=== PATIENT | female | born 1955 | race Caucasian/White ===

== ENCOUNTER 2019-01-25 11:37 | Inpatient (IN) ==
[2019-01-25] MEDS ORDERED: MOM Conc 10 ML UD.LIQ PO PRN (17:32)
[2019-01-25] MEDS ORDERED: *HR* LORazepam 1 MG TABLET PO PRN (17:32)
[2019-01-25] MEDS ORDERED: Haloperidol Lactate 5 MG/ML VIAL IM PRN (17:32)
[2019-01-25] MEDS ORDERED: hydrOXYzine pamoate 25 MG CAPSULE PO PRN (17:32)
[2019-01-25] MEDS ORDERED: *HR* LORazepam 2 MG/ML VIAL IM PRN (17:32)
[2019-01-25] MEDS ORDERED: traZODone 50 MG TABLET PO PRN (17:32)
[2019-01-25] MEDS ORDERED: Mag Hydrox/Al Hydrox/Simeth 30 ML UDC PO PRN (17:32)
[2019-01-25] MEDS ORDERED: *HR* Dextrose 50 % in Water (Syg) 50 ML SYRINGE IVP PRN (17:51)
[2019-01-25] MEDS ORDERED: D5% in Water 1,000 ML IVC PRN (17:51)
[2019-01-25] MEDS ORDERED: Dextrose Gel 15 GM/37.5 ML TUBE PO PRN ×2 (17:51)
[2019-01-25] MEDS: Insulin LISPRO 300 UNITS/3 ML VIAL SQ SCH (18:48)
[2019-01-25] MEDS: Acetaminophen 325 MG TABLET PO PRN (19:04)
[2019-01-25] MEDS ORDERED: INSULIN DETEMIR 75 UNIT SQ SCH (21:00)
[2019-01-25] MEDS: Divalproex (12 HR) 500 MG TABLET PO SCH (21:43)
[2019-01-25] MEDS: Gabapentin 300 MG CAPSULE PO SCH (21:43)
[2019-01-25] MEDS: traZODone 50 MG TABLET PO SCH (21:44)
[2019-01-25] MEDS: Carbidopa/Levodopa 25/100 TABLET PO SCH (21:45)
[2019-01-25] MEDS: Insulin DETEMIR 100 UNIT/ML X5UNITS SQ SCH (21:48)
--- NOTE | 2019-01-26 08:33 | Psychiatry History & Physical ---
Date of Encounter: 01/26/19 Time of Encounter: 07:00 History of Present Illness Patient Stated Chief Complaint: I tried to kill myself Medicare Admission Attestation: For traditional Medicare patients the provided hospital inpatient services are reasonable and necessary and in the case of services not specified as inpatient-only under 42 CFR 419.22 (n), that they are appropriately provided as inpatient services in accordance 42 CFR 412.3. For Critical Access Hospital the patient may reasonably be expected to be discharged or transferred to a hospital within 96 hours after admission to the Critical Access Hospital. Admitted From: Intrahospital Transfer Plans for Post Hospital Care: Home History of Present Illness: Ms. Harding is a 63 year old female who recent attempted suicide by overdosing on her insulin. Patient admits to extreme loneliness at home and states "no one calls or visits." She has family nearby including 2 brothers and 1 son. She states her relationship with her siblings has been strained since her mother a few years ago and that they do not speak often. She states her son who lives 3 hours away "never visits" but does text her daily. She admits to having a counselor who comes to her house once a week to see her but states they didn't have an appointment last week. She reports that Wednesday she just decided "it wasn't worth it anymore" and began taking too much of her insulin "to end it all." She denies any past suicide attempts but admits to previous inpatient psychiatric admissions for "breakdowns." On interview today patient denies any SI/HI or intent to harm herself. She does complain of difficulty sleeping and "real bad anxiety." She was well aware of her psychiatric medications and stated they work well for her except for the buspar which "doesn't do anything." She has been diagnosed with Parkinsons disease and admits to two previous CVA's with most recent one being 2 years prior. She denies AH. She does not show evidence of current delusions, tino, or hypomania. She is initially resistant to discussing inpatient psychiatric hospitilization but does admit she is lonely and that being taken care of in the hospital "might help." We discussed increasing her paroxetine for her undertreated anxiety which she is agreeable too and starting Melatonin to help with sleep. Patient does admit to visual hallucinations in the form of "I see my mother sitting with me when I watch [employer] games." She admits that her mother and her used to watch baseball together before her mother and now when she watches the games sometimes she sees her mother with her. She denies her mother saying anything too her in those times and denies these moments being concerning or distressing to her. Due to lack of distress and mothers being such a large moment in patients life, these hallucinations may be part of normal grieving for her and do not need to be treated at this time with an antipsychotic. Past Med Surg Social Fam HX - Past Medical History Medical history: arthritis, CVA, diabetes, GERD, glaucoma, kidney stones, renal disease, other - Past Psychiatric History Psychiatric history: Reports: anxiety, bipolar, previous psychiatric hospitalization. Denies: prior suicide attempt Past psychiatric history details: Patient admits to two previous psychiatric hospitilizations for "mental breakdowns." She states she has been diagnosed with Depression, Bipolar Disorder, and Schizophrenia. She admits to previous episodes of staying up 2-3 days without sleeping and without feeling the need for sleep and admits that during those times she was more impulsive especially with her spending habits. She denies any previous suicide attempts. Family psychiatric history: Yes Family History of Suicide: Unknown - Past Surgical History Surgical History: , cholecystectomy, hysterectomy, knee replacement, orthopedic, other, other - Social History Smoking Status: Never smoker Smokeless Tobacco Status: No Alcohol use: none Drug use: none - Review of Systems Psychiatric: Reports: depression, anxiety, abnormal sleep pattern, hopelessness. Denies: suicidal ideation, homicidal ideation, auditory hallucinations, visual hallucinations, panic attacks Results - Labs Labs: Laboratory Last Values WBC 12.3 K/mcL (4.3-11.1) H 01/24/19 01:41 RBC 3.54 M/mcL (3.82-4.97) L 01/24/19 01:41 Hgb 10.4 g/dL (11.5-15.4) L 01/24/19 01:41 Hct 32.3 % (35.3-44.9) L 01/24/19 01:41 MCV 91.2 fL (83.0-100.0) 01/24/19 01:41 MCH 29.4 pg (28.0-33.3) 01/24/19 01:41 MCHC 32.2 g/dL (31.6-35.5) 01/24/19 01:41 RDW 13.2 % (11.5-14.5) 01/24/19 01:41 Plt Count 258 K/mcL (140-400) 01/24/19 01:41 MPV 9.7 fL (9.4-12.4) 01/24/19 01:41 Immature Gran % 1.1 % (0-4) 01/24/19 01:41 Seg Neutrophils % 58.4 % 01/24/19 01:41 27.9 % 01/24/19 01:41 8.6 % 01/24/19 01:41 3.6 % 01/24/19 01:41 0.4 % 01/24/19 01:41 7.2 K/mcL (1.6-8.9) 01/24/19 01:41 3.4 K/mcL (0.6-4.6) 01/24/19 01:41 1.1 K/mcL (0.0-1.3) 01/24/19 01:41 0.4 K/mcL (0.0-0.6) 01/24/19 01:41 0.1 K/mcL (0.0-0.2) 01/24/19 01:41 Sodium 134 mEq/L (136-145) L 01/24/19 01:41 Potassium 4.5 mEq/L (3.5-5.1) 01/24/19 01:41 Chloride 99 mEq/L (98-107) 01/24/19 01:41 Carbon Dioxide 26 mEq/L (23-29) 01/24/19 01:41 BUN 22 mg/dL (8-23) 01/24/19 01:41 1.17 mg/dL (0.60-1.20) 01/24/19 01:41 Est GFR ( Amer) 57 (> 60) L 01/24/19 01:41 Est GFR (Non-Af Amer) 47 (> 60) L 01/24/19 01:41 19 (6-26) 01/24/19 01:41 Glucose 165 mg/dL (70-105) H 01/24/19 01:41 285 (280-300) 01/24/19 01:41 Calcium 8.6 mg/dL (8.6-10.3) 01/24/19 01:41 0.3 mg/dL (0.3-1.0) 01/24/19 01:41 AST 7 Units/L (13-39) L 01/24/19 01:41 ALT 7 Units/L (7-52) 01/24/19 01:41 64 Units/L (34-104) 01/24/19 01:41 6.2 g/dL (6.4-8.9) L 01/24/19 01:41 3.6 g/dL (3.5-5.7) 01/24/19 01:41 2.6 g/dL (2.4-3.5) 01/24/19 01:41 1.4 (1.1-2.2) 01/24/19 01:41 Past Med Surg Social Fam HX - Past Medical History Medical history: arthritis, CVA, diabetes, GERD, glaucoma, kidney stones, renal disease, TIA, other - Past Surgical History Surgical History: , cholecystectomy, hysterectomy, knee replacement, orthopedic, other, other - Social History Smoking Status: Never smoker Smokeless Tobacco Status: No Alcohol use: none Drug use: marijuana - Family History Son Adopted: No Family Member Ethnicity: Non- Living Status: Still Living Hx Family Cardiac Disorders: No Hx Family Respiratory Disorders: No Hx Family Cancer: No Hx Family GI Disorders: No Hx Family Endocrine Disorder: No Hx Family Neuromuscular Disorders: No Hx Family Neurologic Disorders: No Hx Family HEENT Disorders: No Hx Family Autoimmune Disorders: No Mother Adopted: No Family Member Ethnicity: Non- Living Status: Hx Family Cardiac Disorders: Yes Hx Family Respiratory Disorders: Yes Hx Family Cancer: No Hx Family GI Disorders: No Hx Family Endocrine Disorder: Yes Hx Family Neuromuscular Disorders: No Hx Family Neurologic Disorders: No Hx Family HEENT Disorders: No Hx Family Autoimmune Disorders: No Hx Family Reproductive Disorders: No Hx Family Psychosocial Disorders: No Hx Family Medical Disorders: No Medications & Allergies Atorvastatin Calcium [Lipitor] 20 mg PO DAILY 09/06/17 [History] Carbidopa/Levodopa [Carbidopa-Levodopa 25-100 Tab] 1 tab PO TID 09/06/17 [History] Cholecalciferol (Vitamin D3) [Vitamin D3] 2,000 unit PO DAILY 09/06/17 [History] Gabapentin [Neurontin] 600 mg PO HS 09/06/17 [History] Insulin ASPART [Novolog Flexpen] 15 - 21 unit SQ TID 09/06/17 [History] traZODone [TraZODone] 100 mg PO HS 09/06/17 [History] Amantadine [Symmetrel] 100 mg PO BID 10/07/17 [History] Buspirone HCl [Buspar] 15 mg PO QID 02/07/18 [History] Docusate [Colace] 200 mg PO QAM 02/07/18 [History] Cetirizine HCl [Zyrtec] 10 mg PO DAILY #14 tablet 04/25/18 [Rx] Insulin DETEMIR [Levemir Flextouch] 75 unit SQ BID 05/25/18 [History] Liraglutide [Victoza 2-Rosales] 1.2 mg SQ DAILY 12/09/18 [History] Aspirin 81 mg PO DAILY 01/24/19 [History] Divalproex Sodium 1,000 mg PO HS 01/24/19 [History] Gabapentin [Neurontin] 300 mg PO BID 01/24/19 [History] Lisinopril 2.5 mg PO DAILY 01/24/19 [History] Oxybutynin [Ditropan] 5 mg PO BID 01/24/19 [History] Paroxetine [Paxil] 60 mg PO DAILY tablet 01/25/19 [Rx] Allergy/AdvReac Type Severity Reaction Status Date / Time levofloxacin [From Levaquin] Allergy Hives Verified 12/09/18 14:26 Penicillins Allergy Hives Verified 04/25/18 14:21 sulfamethoxazole Allergy Hives Verified 04/25/18 14:21 [From Sulfamethoprim] Tetanus Vaccines and Toxoid Allergy Rash Verified 04/25/18 14:21 [Tetanus Vaccines & Toxoid] trimethoprim Allergy Hives Verified 04/25/18 14:21 [From Sulfamethoprim] clindamycin AdvReac Hives Verified 04/25/18 14:21 ibuprofen AdvReac See Verified 04/25/18 14:21 Comments Review of Systems Constitutional: Denies: fever Eyes: Denies: eye pain Ears, Nose, Throat: Denies: ear pain Cardiovascular: Denies: chest pain Respiratory: Denies: cough Gastrointestinal: Denies: abdominal pain Genitourinary female: Denies: urgency Musculoskeletal: Denies: back pain Integumentary: Denies: rash Neurological: Denies: headache Psychiatric: Reports: depression, abnormal sleep pattern, suicidal ideation, change in appetite, auditory hallucinations Endocrine: Reports: fatigue Hematologic/Lymphatic: Denies: easy bleeding Allergic/Immunologic: Denies: facial swelling Exam - HEENT Head exam IM: Present: atraumatic Eye exam IM: Present: EOMI ENT exam IM: Present: mucous membranes moist - Neurological Neurological exam: Present: CN II-XII intact - Respiratory Respiratory exam IM: Absent: respiratory distress - GI/Abdominal GI/Abdominal exam IM: Present: no peritoneal signs - Extremities Extremities exam IM: Present: full ROM - Skin Skin exam IM: Absent: abrasion - Constitutional Vitals: Temp Pulse Resp BP Pulse Ox 98.9 F 98 18 102/68 97 01/25/19 21:00 01/25/19 21:00 01/25/19 21:00 01/25/19 21:00 01/25/19 21:00 General appearance: age & developmentally appropriate - Musculoskeletal Gait: slow Station: stooped Strength & Tone: normal for patient - Psychiatric Patient Orientation: Yes Person, Yes Time, Yes Place, Yes Circumstance Level of alertness: Alert Behavior: tearful Psychomotor activity: Slowed Eye Contact: Minimal Contact Mood Description: Depressed Patient description of mood: depressed Affect description: dysphoric Speech Volume: Soft/Quiet Speech pattern: slowed Language & Vocabulary: consistent with education, limited Thought Process: Linear Thought Content: Yes Suicidal ideation Perceptual Disturbances: Yes Auditory hallucinations Attention Span Ability: Capable of Focused Attention Memory Description: Grossly Intact Patient Reliability: Reliable Historian Fund of knowledge: Yes abstraction ability Intelligence Estimate: Average Judgment: Fair Insight: Partial Results - Labs Labs: Laboratory Last Values POC Glucose 181 mg/dL (70-99) H 01/25/19 20:59 Assessment and Plan (1) Bipolar 2 disorder, major depressive episode Current visit: No Status: Suspected Plan: Admit inpatient for safety and stabilization Additional Plan: continue current medications, encourage group attendance, therapist to work on discharge planning. Risks, benefits, side effects, alternatives discussed w/pt: Yes Patient agreeable to treatment: Yes Plans for Post Hospital Care: Home Estimated Length of Stay (Days): 4
[2019-01-26] MEDS: Insulin LISPRO 300 UNITS/3 ML VIAL SQ SCH ×3 (09:01→16:59)
[2019-01-26] MEDS: Cholecalciferol (D-3) 1,000 UNIT (25MCG) TABLET PO SCH (09:02)
[2019-01-26] MEDS: Aspirin 81 MG TAB.CHEW PO SCH (09:02)
[2019-01-26] MEDS: Loratadine 10 MG TABLET PO SCH (09:02)
[2019-01-26] MEDS: Carbidopa/Levodopa 25/100 TABLET PO SCH ×3 (09:02→20:44)
[2019-01-26] MEDS: Gabapentin 300 MG CAPSULE PO SCH ×3 (09:02→20:46)
[2019-01-26] MEDS: Liraglutide 1.2 MG SQ SCH (09:50)
[2019-01-26] MEDS: Insulin DETEMIR 100 UNIT/ML X5UNITS SQ SCH ×2 (11:22→22:07)
[2019-01-26] MEDS: Acetaminophen 325 MG TABLET PO PRN ×2 (14:27→20:48)
[2019-01-26] MEDS: traZODone 50 MG TABLET PO SCH (20:45)
[2019-01-26] MEDS: Divalproex (12 HR) 500 MG TABLET PO SCH (20:47)
[2019-01-27] MEDS: Acetaminophen 325 MG TABLET PO PRN ×3 (04:04→20:10)
[2019-01-27] MEDS: Carbidopa/Levodopa 25/100 TABLET PO SCH ×3 (08:41→20:10)
[2019-01-27] MEDS: Cholecalciferol (D-3) 1,000 UNIT (25MCG) TABLET PO SCH (08:42)
[2019-01-27] MEDS: Aspirin 81 MG TAB.CHEW PO SCH (08:42)
[2019-01-27] MEDS: Gabapentin 300 MG CAPSULE PO SCH ×3 (08:42→20:12)
[2019-01-27] MEDS: Loratadine 10 MG TABLET PO SCH (08:43)
[2019-01-27] MEDS: Insulin DETEMIR 100 UNIT/ML X5UNITS SQ SCH ×2 (08:45→20:14)
[2019-01-27] MEDS: Insulin LISPRO 300 UNITS/3 ML VIAL SQ SCH ×3 (08:57→16:41)
[2019-01-27] MEDS: Liraglutide 1.2 MG SQ SCH (08:57)
[2019-01-27] MEDS ORDERED: Azithromycin 250 MG TABLET PO ONE (09:43)
--- NOTE | 2019-01-27 09:47 | Psychiatry Progress Note ---
Date of Encounter: 01/27/19 Time of Encounter: 09:00 Subjective Interval history: Patient continues to report feeling very depressed. She feels all her family have abandoned her and there is no point in living. She has suicidal ideations with plan to overdose. She refused some vital signs and one-on-one with staff yesterday because of feeling so hopeless and overwhelmed. She says she will talk to her 1 son about the stress he has caused because she does not want the rest of the family knowing her business. He continues to have symptoms of a sinus infection. She now says she can take azithromycin. She also reports she has had off and on chest pain but none in the last 48 hours. Review of Systems Cardiovascular: Reports: chest pain Neurological: Reports: headache Psychiatric: Reports: depression, abnormal sleep pattern, suicidal ideation, change in appetite, auditory hallucinations Results - Vital Signs Vital Signs: Temp Pulse Resp BP Pulse Ox 97.9 F 110 22 115/82 98 01/27/19 08:50 01/27/19 08:50 01/27/19 08:50 01/27/19 08:50 01/27/19 08:50 - Labs Labs: Laboratory Results - last 24 hr 01/26/19 01/26/19 01/26/19 11:43 16:51 20:05 POC Glucose 149 H 100 H 85 01/27/19 07:47 POC Glucose 68 L Assessment and Plan (1) Bipolar 2 disorder, major depressive episode Current visit: No Status: Suspected Plan: Continue hospitalization, Close observation, Suicide Precautions per unit protocol, Encourage participation in unit milieu, Group Therapy, Monitor sleep, Monitor appetite Additional Plan: Add Wellbutrin XL 150 by mouth every morning for further treatment of depression. WIll update the medicine consult regarding her off and non-chest pain. We will start the azithromycin 500 mg 1 and then 250 daily for 4 days. Risks, benefits, side effects, alternatives discussed w/pt: Yes Patient agreeable to treatment: Yes Consult Discharge Plan - Plan Referrals: [facility] [[facility]] - 02/08/19 12:00 pm (You have an appointment scheduled with Kavya Saab on Friday, February 08, 2019 at 12:00 PM for Counseling and Case Management. You have an appointment scheduled for January at 11:20 AM with Kathy Ramirez CNP for medication management. Please contact the office at least 24 hours in advance if you are unable to keep your appointment(s). ) Psychiatry Exam - Constitutional Vitals: Temp Pulse Resp BP Pulse Ox 97.9 F 110 22 115/82 98 01/27/19 08:50 01/27/19 08:50 01/27/19 08:50 01/27/19 08:50 01/27/19 08:50 General appearance: age & developmentally appropriate, obese - Musculoskeletal Gait: slow, shuffling Station: stooped Strength & Tone: mild weakness - Psychiatric Patient Orientation: Yes Person, Yes Time, Yes Place, Yes Circumstance Level of alertness: Alert Behavior: tearful Psychomotor activity: Slowed Eye Contact: Minimal Contact Mood Description: Depressed Patient description of mood: sad Affect description: dysphoric Speech Volume: Soft/Quiet Speech pattern: slowed Language & Vocabulary: consistent with education Thought Process: Logical Thought Content: Yes Suicidal ideation, No Homicidal ideation Perceptual Disturbances: No Auditory hallucinations, No Visual hallucinations Attention Span Ability: Capable of Focused Attention Memory Description: Grossly Intact Patient Reliability: Reliable Historian Fund of knowledge: Yes abstraction ability, Yes aware of current events Intelligence Estimate: Average Judgment: Limited Insight: Minimal
[2019-01-27] MEDS: BuPROPion XL (24 HR) 150 MG TABLET PO SCH (10:59)
--- NOTE | 2019-01-27 13:41 | Internal Medicine Consult Note ---
Date of Encounter: 01/27/19 Time of Encounter: 13:33 - Assessment and Plan (1) Chest pressure Current Visit: Yes Status: Acute Assessment and plan: 63-year-old female with history of diabetes mellitus, hypertension, bipolar disorder, and suicide attempts who complains of intermittent chest pressure for couple weeks. Recent lab work showed negative troponin, EKG performed 3 days ago showed in no acute ST-T change. Patient reported that her chest pain/pressure has been stable and has not been worsened in the last 3 days. We will order troponin and cycle for 3 days set, will also order a EKG for now. Workup will also include with that repeat A1c, lipid panel, an echocardiogram, and a stress test. We will consult cardiology if indicated. (2) Insulin overdose Current Visit: No Status: Acute Assessment and plan: Resolved, patient blood glucose was controlled although not perfectly controlled. Continue current insulin regimen and treatment plan. Qualifiers: Encounter type: initial encounter Injury intent: intentional self-harm Qualified Code(s): T38.3X2A - Poisoning by insulin and oral hypoglycemic [antidiabetic] drugs, intentional self-harm, initial encounter (3) Hypoglycemia Current Visit: No Status: Resolved (4) Suicide attempt Current Visit: No Status: Acute Assessment and plan: Treatment by psychiatry team. (5) Bipolar 2 disorder, major depressive episode Current Visit: No Status: Suspected Assessment and plan: Treatment per psychiatry team. (6) DVT prophylaxis Current Visit: No Status: Acute Assessment and plan: Heparin subcutaneous. - Time Spent With Patient Total time spent is greater than 50% in coordination of care (as documented) at patient's floor/unit and/or counseling patient: Greater than 35 minutes Internal Medicine - CN: HPI - Data of Consult Patient: known to practice within the last 3 years Consult date: 01/27/19 Requesting Physician: Dilcia Martin - Consult Narrative Reason for consult: chest pressure History of present illness: Ms. Harding is a 63 year old female with past medical history of diabetes mellitus, hypertension, bipolar disorder, and a suicidal attempts who was recently admitted for suicidal activity by overdosing insulin. She is currently treated at the psychiatry unit for suicidal attempt. Patient reported that she has been having intermittent left-sided chest pressure in the past couple weeks, chest pain reappeared today without any obvious precipitant. Hospitalist was consulted. Patient reported extensive family history of CAD, but she never been diagnosis with CAD, she has diabetes and hypertension for years and currently on insulin and lisinopril, her blood glucose was poorly controlled. The pain was characterized by patient as intermittent, 3-4 out of 10, with no obvious aggravating or abbreviating factors, lasts about 10-25 minutes, usually resolved by itself without intervention, without palpitation, lightheadedness, or syncope. She was admitted to our service 3 days ago because of insulin overdose and hypoglycemia. At that time, troponin was negative, as was her EKG. She never had any cardiac workup and she wishes to have 1. She denies fever, chills, or night sweats. Past Med Surg Social Fam HX - Past Medical History Medical history: arthritis, CVA, diabetes, GERD, glaucoma, kidney stones, renal disease, TIA, other Additional medical history: Parkinson's Disease, Type 11 Diabetic Psychiatric history: anxiety, bipolar, previous psychiatric hospitalization - Past Surgical History Surgical History: , cholecystectomy, hysterectomy, knee replacement, orthopedic, other, other Additional surgical history: left hand surgery. left total knee. right hand - Social History Smoking Status: Never smoker Smokeless Tobacco Status: No Alcohol use: none Drug use: marijuana - Family History Son Adopted: No Family Member Ethnicity: Non- Living Status: Still Living Hx Family Cardiac Disorders: No Hx Family Respiratory Disorders: No Hx Family Cancer: No Hx Family GI Disorders: No Hx Family Endocrine Disorder: No Hx Family Neuromuscular Disorders: No Hx Family Neurologic Disorders: No Hx Family HEENT Disorders: No Hx Family Autoimmune Disorders: No Mother Adopted: No Family Member Ethnicity: Non- Living Status: Hx Family Cardiac Disorders: Yes Hx Family Respiratory Disorders: Yes Hx Family Cancer: No Hx Family GI Disorders: No Hx Family Endocrine Disorder: Yes Hx Family Neuromuscular Disorders: No Hx Family Neurologic Disorders: No Hx Family HEENT Disorders: No Hx Family Autoimmune Disorders: No Hx Family Reproductive Disorders: No Hx Family Psychosocial Disorders: No Hx Family Medical Disorders: No Review of systems: REVIEW OF SYSTEMS: CONSTITUTIONAL: No weight loss, fever, chills, weakness or fatigue. HEENT: Eyes: No visual loss, blurred vision, double vision or yellow sclerae. Ears, Nose, Throat: No hearing loss, sneezing, congestion, runny nose or sore throat. SKIN: No rash or itching. CARDIOVASCULAR: see HPI. RESPIRATORY: No shortness of breath, cough or sputum. GASTROINTESTINAL: No anorexia, nausea, vomiting or diarrhea. No abdominal pain or blood. GENITOURINARY: No dysuria, urgency, or frequency. NEUROLOGICAL: No headache, dizziness, syncope, paralysis, ataxia, numbness or tingling in the extremities. No change in bowel or bladder control. MUSCULOSKELETAL: No muscle, back pain, joint pain or stiffness. HEMATOLOGIC: No anemia, bleeding or bruising. LYMPHATICS: No enlarged nodes. No history of splenectomy. PSYCHIATRIC: No history of depression or anxiety. ENDOCRINOLOGIC: No reports of sweating, cold or heat intolerance. No polyuria or polydipsia. Internal Medicine - CN: Meds Atorvastatin Calcium [Lipitor] 20 mg PO DAILY 09/06/17 [History] Carbidopa/Levodopa [Carbidopa-Levodopa 25-100 Tab] 1 tab PO TID 09/06/17 [H istory] Cholecalciferol (Vitamin D3) [Vitamin D3] 2,000 unit PO DAILY 09/06/17 [History] Gabapentin [Neurontin] 600 mg PO HS 09/06/17 [History] Insulin ASPART [Novolog Flexpen] 15 - 21 unit SQ TID 09/06/17 [History] traZODone [TraZODone] 100 mg PO HS 09/06/17 [History] Amantadine [Symmetrel] 100 mg PO BID 10/07/17 [History] Buspirone HCl [Buspar] 15 mg PO QID 02/07/18 [History] Docusate [Colace] 200 mg PO QAM 02/07/18 [History] Cetirizine HCl [Zyrtec] 10 mg PO DAILY #14 tablet 04/25/18 [Rx] Insulin DETEMIR [Levemir Flextouch] 75 unit SQ BID 05/25/18 [History] Liraglutide [Victoza 2-Rosales] 1.2 mg SQ DAILY 12/09/18 [History] Aspirin 81 mg PO DAILY 01/24/19 [History] Divalproex Sodium 1,000 mg PO HS 01/24/19 [History] Gabapentin [Neurontin] 300 mg PO BID 01/24/19 [History] Lisinopril 2.5 mg PO DAILY 01/24/19 [History] Oxybutynin [Ditropan] 5 mg PO BID 01/24/19 [History] Paroxetine [Paxil] 60 mg PO DAILY tablet 01/25/19 [Rx] Allergy/AdvReac Type Severity Reaction Status Date / Time levofloxacin [From Levaquin] Allergy Hives Verified 12/09/18 14:26 Penicillins Allergy Hives Verified 04/25/18 14:21 sulfamethoxazole Allergy Hives Verified 04/25/18 14:21 [From Sulfamethoprim] Tetanus Vaccines and Toxoid Allergy Rash Verified 04/25/18 14:21 [Tetanus Vaccines & Toxoid] trimethoprim Allergy Hives Verified 04/25/18 14:21 [From Sulfamethoprim] clindamycin AdvReac Hives Verified 04/25/18 14:21 ibuprofen AdvReac See Verified 04/25/18 14:21 Comments Hospitalist - CN: Exam - Constitutional Vitals: Temp Pulse Resp BP Pulse Ox 97.9 F 110 22 115/82 98 01/27/19 08:50 01/27/19 08:50 01/27/19 08:50 01/27/19 08:50 01/27/19 08:50 General appearance IM: Present: A&O X 3 Exam: PHYSICAL EXAMINATION: GENERAL APPEARANCE: The patient is alert, oriented and in no acute distress. HEENT: Head is normocephalic. The sinuses are nontender. Pupils are equal and reactive. The nares are patent. Oropharynx clear without lesions. NECK: Supple without lymphadenopathy. HEART: Regular rate and rhythm. LUNGS: No crackles or wheezes are heard. ABDOMEN: Soft, nontender, nondistended with good bowel sounds heard. Inguinal area is normal. EXTREMITIES: Without cyanosis, clubbing or edema. NEUROLOGICAL: Gross nonfocal. SKIN: Warm and dry without any rash. Consult Discharge Plan - Plan Referrals: [facility] [Outside] - 02/08/19 12:00 pm (You have an appointment scheduled with Kavya Saab on Friday, February 08, 2019 at 12:00 PM for Counseling and Case Management. You have an appointment scheduled for January at 11:20 AM with Kathy Ramirez CNP for medication management. Please contact the office at least 24 hours in advance if you are unable to keep your appointment(s). )
[2019-01-27] MEDS ORDERED: Nitroglycerin 0.4 MG TAB.SUBL SL PRN (14:05)
[2019-01-27] MEDS: traZODone 50 MG TABLET PO SCH (20:10)
[2019-01-27] MEDS: Divalproex (12 HR) 500 MG TABLET PO SCH (20:12)
[2019-01-27] MEDS ORDERED: Perflutren Lipid Microsphere 1.3 ML in 0.9 % Sodium Chloride 8.7 ML IVP ONE (21:13)
[2019-01-28] MEDS ORDERED: Regadenoson 0.4 MG/5 ML SYRINGE IVP ONE (06:06)
[2019-01-28] MEDS: Insulin LISPRO 300 UNITS/3 ML VIAL SQ SCH ×3 (08:28→16:50)
[2019-01-28] MEDS: Gabapentin 300 MG CAPSULE PO SCH ×3 (08:34→21:29)
[2019-01-28] MEDS: Aspirin 81 MG TAB.CHEW PO SCH (08:34)
[2019-01-28] MEDS: Azithromycin 250 MG TABLET PO SCH (08:34)
[2019-01-28] MEDS: Cholecalciferol (D-3) 1,000 UNIT (25MCG) TABLET PO SCH (08:35)
[2019-01-28] MEDS: BuPROPion XL (24 HR) 150 MG TABLET PO SCH (08:35)
[2019-01-28] MEDS: Carbidopa/Levodopa 25/100 TABLET PO SCH ×3 (08:35→21:29)
[2019-01-28] MEDS: Loratadine 10 MG TABLET PO SCH (08:35)
[2019-01-28 08:53] LABS: Chol/HDL Ratio 1.9 (0-4.9)
[2019-01-28] MEDS: Insulin DETEMIR 100 UNIT/ML X5UNITS SQ SCH ×2 (08:53→21:32)
[2019-01-28] MEDS: Liraglutide 1.2 MG SQ SCH (10:00)
--- NOTE | 2019-01-28 10:43 | Internal Med Progress Note ---
Hospitalist Progress Note - Encounter Date of Encounter: 01/28/19 Time of Encounter: 08:05 - Subjective Interval History: Jojo Harding is a 63 YOF with history of DM, HTN, CVA 2, Parkinson's, and bipolar who was admitted to due to attempted suicide by overdosing on insulin. Hospitalist consulted due to complaint of intermittent chest pressure for the past couple weeks. No acute events overnight. Patient without complaint and not currently expe riencing chest pressure. - Exam Vitals: Temp Pulse Resp BP Pulse Ox 98.3 F 85 16 77/62 99 01/28/19 09:00 01/28/19 09:00 01/28/19 09:00 01/28/19 09:00 01/28/19 09:00 Exam: GENERAL: alert, oriented and in no acute distress. Speaking full sentences without difficulty. HEAD: Normocephalic, atraumatic ENT: Oropharynx clear, mucosa moist HEART: RRR, no murmur noted LUNGS: CTAB, no wheezing or crackles EXTREMITIES: 1+ pitting edema below the knees bilaterally. NEUROLOGICAL: No focal deficits SKIN: Warm, dry, intact. No rashes or lesions noted. PSYCH: Mood and affect appropriate - Assessment and Plan (1) Chest pressure Current Visit: Yes Status: Acute Assessment and Plan: Unclear etiology, suspect stress related, will rule out ACS given multiple risk factors Recent EKG without acute ischemic changes Troponin negative 2 Nuclear stress test pending (2) Insulin overdose Current Visit: Yes Status: Resolved Assessment and Plan: Suicide attempt via insulin Hypoglycemia resolved Treatment per primary team (3) Acute sinus infection Current Visit: Yes Status: Acute Assessment and Plan: Continue azithromycin per primary team DVT Prophylaxis: Subcutaneous heparin - Time Spent with Patient Total time spent is greater than 50% in coordination of care (as documented) at patient's floor/unit and/or counseling patient: Plan of Care Discussed with: patient Internal Medicine: Result - Labs Labs: Cardiac Enzymes 01/27/19 01/28/19 Range/Units 17:26 05:48 Troponin I < 0.03 < 0.03 (< 0.04) ng/mL - Impressions Impressions Echocardiogram 01/27/19 13:47 Impressions: LVEF 65-70%. Mild left ventricular diastolic dysfunction. Normal right ventricular structure and function. Mildly dilated left atrium. No significant valvular dysfunction. No pulmonary hypertension. Left Ventricular Wall Motion: Rest Echo Findings All wall segments showed normal motion. Findings: Study Quality * Technically adequate exam. ECG Findings * Normal sinus rhythm. Left Ventricle * LVEF 65-70%. * Normal LV chamber size, wall thickness and systolic function. * Mild left ventricular diastolic dysfunction. Right Ventricle * Normal right ventricular structure and function. Left Atrium * Mildly dilated left atrium. Right Atrium * Normal right atrial size. Interatrial Septum * Interatrial septum not well evaluated. * No evidence of PFO by color Doppler. Aortic Valve * Aortic valve not well visualized. * No aortic stenosis. * No aortic regurgitation. Mitral Valve * Normal mitral valve structure. * No mitral stenosis. * Trace mitral regurgitation. Tricuspid Valve * Normal tricuspid valve structure. * No tricuspid stenosis. * Trace tricuspid regurgitation. * Estimated RA pressure is 3 mmHg. * Estimated RVSP is 30 mmHg. * No pulmonary hypertension. Pulmonic Valve * Pulmonic valve is not well visualized. * No pulmonic stenosis. * No pulmonic regurgitation. Aorta * Normally sized aortic root. Pericardium * The pericardium appears normal. IVC * The IVC is not dilated. * > 50% respiratory change - VTE Reasons for not Prescribing Prophylaxis: Treatment not Indicated - Low risk for VTE Consult Discharge Plan - Plan Referrals: [facility] [Outside] - 02/08/19 12:00 pm (You have an appointment scheduled with Kavya Saab on Friday, February 08, 2019 at 12:00 PM for Counseling and Case Management. You have an appointment scheduled for January at 11:20 AM with Kathy Ramirez CNP for medication management. Please contact the office at least 24 hours in advance if you are unable to keep your appointment(s). ) (2) Insulin overdose Qualifiers: Encounter type: initial encounter Injury intent: intentional self-harm Qualified Code(s): T38.3X2A - Poisoning by insulin and oral hypoglycemic [antidiabetic] drugs, intentional self-harm, initial encounter (3) Acute sinus infection Qualifiers: Sinusitis location: unspecified location Recurrence: not specified as recurrent Qualified Code(s): J01.90 - Acute sinusitis, unspecified
[2019-01-28 11:10] LABS: Estimated Average Glucose 157 mg/dl
--- NOTE | 2019-01-28 12:26 | Psychiatry Progress Note ---
Date of Encounter: 01/28/19 Time of Encounter: 12:24 Subjective Interval history: patient has been seen byhospitalist. They tried to do an echo but couldn't get IV access so will wait until Wednesday. She continues to feel very depressed and hopeless. She feels no onw in her family cares about her. SHe is tolerating the wellbutrin but hasn't noticed a difference. Sinus infection a bit better with azythromycin. Review of Systems Neurological: Reports: headache Psychiatric: Reports: depression, abnormal sleep pattern, suicidal ideation, change in appetite, auditory hallucinations Results - Vital Signs Vital Signs: Temp Pulse Resp BP Pulse Ox 98.3 F 85 16 77/62 99 01/28/19 09:00 01/28/19 09:00 01/28/19 09:00 01/28/19 09:00 01/28/19 09:00 - Labs Labs: Laboratory Results - last 24 hr 01/27/19 01/27/19 01/27/19 16:35 17:26 20:09 POC Glucose 160 H 141 H Est Mean Plasma Glucose Hemoglobin A1c Troponin I < 0.03 Triglycerides Cholesterol LDL Cholesterol, Calc VLDL Cholesterol, Calc HDL Cholesterol Cholesterol/HDL Ratio 01/28/19 01/28/19 01/28/19 04:00 04:00 05:48 POC Glucose Est Mean Plasma Glucose 157 Hemoglobin A1c 7.1 H Troponin I < 0.03 Triglycerides 89 Cholesterol 132 LDL Cholesterol, Calc 46 VLDL Cholesterol, Calc 18 HDL Cholesterol 68 H Cholesterol/HDL Ratio 1.9 01/28/19 01/28/19 08:15 11:46 POC Glucose 82 153 H Est Mean Plasma Glucose Hemoglobin A1c Troponin I Triglycerides Cholesterol LDL Cholesterol, Calc VLDL Cholesterol, Calc HDL Cholesterol Cholesterol/HDL Ratio - Impressions ITS Impressions Echocardiogram 01/27/19 13:47 Impressions: LVEF 65-70%. Mild left ventricular diastolic dysfunction. Normal right ventricular structure and function. Mildly dilated left atrium. No significant valvular dysfunction. No pulmonary hypertension. Left Ventricular Wall Motion: Rest Echo Findings All wall segments showed normal motion. Findings: Study Quality * Technically adequate exam. ECG Findings * Normal sinus rhythm. Left Ventricle * LVEF 65-70%. * Normal LV chamber size, wall thickness and systolic function. * Mild left ventricular diastolic dysfunction. Right Ventricle * Normal right ventricular structure and function. Left Atrium * Mildly dilated left atrium. Right Atrium * Normal right atrial size. Interatrial Septum * Interatrial septum not well evaluated. * No evidence of PFO by color Doppler. Aortic Valve * Aortic valve not well visualized. * No aortic stenosis. * No aortic regurgitation. Mitral Valve * Normal mitral valve structure. * No mitral stenosis. * Trace mitral regurgitation. Tricuspid Valve * Normal tricuspid valve structure. * No tricuspid stenosis. * Trace tricuspid regurgitation. * Estimated RA pressure is 3 mmHg. * Estimated RVSP is 30 mmHg. * No pulmonary hypertension. Pulmonic Valve * Pulmonic valve is not well visualized. * No pulmonic stenosis. * No pulmonic regurgitation. Aorta * Normally sized aortic root. Pericardium * The pericardium appears normal. IVC * The IVC is not dilated. * > 50% respiratory change Assessment and Plan (1) Bipolar 2 disorder, major depressive episode Current visit: No Status: Suspected Plan: Continue hospitalization, Close observation, Suicide Precautions per unit protocol, Encourage participation in unit milieu, Group Therapy, Monitor sleep, Monitor appetite Additional Plan: continue current medication , encourage groups, therapist working on discharge plans. Risks, benefits, side effects, alternatives discussed w/pt: Yes Patient agreeable to treatment: Yes Consult Discharge Plan - Plan Referrals: [facility] [Outside] - 02/08/19 12:00 pm (You have an appointment scheduled with Kavya Saab on Friday, February 08, 2019 at 12:00 PM for Counseling and Case Management. You have an appointment scheduled for January at 11:20 AM with Kathy Ramirez CNP for medication management. Please contact the office at least 24 hours in advance if you are unable to keep your appointment(s). ) Psychiatry Exam - Constitutional Vitals: Temp Pulse Resp BP Pulse Ox 98.3 F 85 16 77/62 99 01/28/19 09:00 01/28/19 09:00 01/28/19 09:00 01/28/19 09:00 01/28/19 09:00 General appearance: age & developmentally appropriate, obese - Musculoskeletal Gait: slow, unsteady, shuffling Station: shaky Strength & Tone: mild weakness - Psychiatric Patient Orientation: Yes Person, Yes Time, Yes Place, Yes Circumstance Level of alertness: Alert Behavior: dramatic Psychomotor activity: Slowed Eye Contact: Minimal Contact Mood Description: Depressed Patient description of mood: sad Affect description: dysphoric Speech Volume: Soft/Quiet Speech pattern: slowed Language & Vocabulary: consistent with education Thought Process: Intact Thought Content: Yes Suicidal ideation, No Homicidal ideation Perceptual Disturbances: Yes Auditory hallucinations Attention Span Ability: Capable of Focused Attention Memory Description: Grossly Intact Patient Reliability: Reliable Historian Fund of knowledge: Yes abstraction ability, Yes aware of current events Intelligence Estimate: Average Judgment: Limited Insight: Minimal
--- NOTE | 2019-01-28 15:39 | Electrocardiograph Report ---
[place] [id number] Test Date: 2019-01-28 Pat Name: Jojo Harding Department: 101 Room: 1A23 Gender: F [employer]visor [employer]: : 1955 Requested By: Yandy Guardado Order Number: [id number] Reading MD: Siomara Smith Measurements Intervals [place] Rate: 80 P: 34 AR: 139 QRS: 38 QRSD: 86 T: 44 QT: 398 QTc: 434 Interpretive Statements SINUS RHYTHM Electronically Signed On 01-28-2019 15:37:43 EDT by Siomara Smith
[2019-01-28] MEDS: Acetaminophen 325 MG TABLET PO PRN (18:39)
[2019-01-28] MEDS: traZODone 50 MG TABLET PO SCH (21:27)
[2019-01-28] MEDS: Divalproex (12 HR) 500 MG TABLET PO SCH (21:27)
[2019-01-29] MEDS: Aspirin 81 MG TAB.CHEW PO SCH (08:36)
[2019-01-29] MEDS: Cholecalciferol (D-3) 1,000 UNIT (25MCG) TABLET PO SCH (08:36)
[2019-01-29] MEDS: Loratadine 10 MG TABLET PO SCH (08:36)
[2019-01-29] MEDS: BuPROPion XL (24 HR) 150 MG TABLET PO SCH (08:37)
[2019-01-29] MEDS: Carbidopa/Levodopa 25/100 TABLET PO SCH ×3 (08:37→21:10)
[2019-01-29] MEDS: Azithromycin 250 MG TABLET PO SCH (08:37)
[2019-01-29] MEDS: Gabapentin 300 MG CAPSULE PO SCH ×3 (08:38→21:11)
[2019-01-29] MEDS: Insulin LISPRO 300 UNITS/3 ML VIAL SQ SCH ×3 (08:38→16:51)
[2019-01-29] MEDS: Insulin DETEMIR 100 UNIT/ML X5UNITS SQ SCH ×2 (08:38→21:15)
--- NOTE | 2019-01-29 08:59 | Psychiatry Progress Note ---
Date of Encounter: 01/29/19 Time of Encounter: 08:30 Subjective Interval history: Patient reports she is feeling less depressed. She has a little bit more energy. She is no longer experiencing suicidal ideations. She is more hopeful. She has been attending groups. She has been up on the unit with a good appetite. Tolerating medications. Review of Systems Psychiatric: Reports: depression, abnormal sleep pattern, change in appetite Results - Vital Signs Vital Signs: Temp Pulse Resp BP Pulse Ox 98.3 F 94 16 110/58 97 01/29/19 08:33 01/29/19 08:33 01/29/19 08:33 01/29/19 08:33 01/29/19 08:33 - Labs Labs: Laboratory Results - last 24 hr 01/28/19 01/28/19 01/28/19 04:00 11:46 16:46 POC Glucose 153 H 121 H Est Mean Plasma Glucose 157 Hemoglobin A1c 7.1 H 01/28/19 01/29/19 01/29/19 20:33 02:22 07:59 POC Glucose 130 H 144 H 120 H Est Mean Plasma Glucose Hemoglobin A1c - Impressions ITS Impressions Echocardiogram 01/27/19 13:47 Impressions: LVEF 65-70%. Mild left ventricular diastolic dysfunction. Normal right ventricular structure and function. Mildly dilated left atrium. No significant valvular dysfunction. No pulmonary hypertension. Left Ventricular Wall Motion: Rest Echo Findings All wall segments showed normal motion. Findings: Study Quality * Technically adequate exam. ECG Findings * Normal sinus rhythm. Left Ventricle * LVEF 65-70%. * Normal LV chamber size, wall thickness and systolic function. * Mild left ventricular diastolic dysfunction. Right Ventricle * Normal right ventricular structure and function. Left Atrium * Mildly dilated left atrium. Right Atrium * Normal right atrial size. Interatrial Septum * Interatrial septum not well evaluated. * No evidence of PFO by color Doppler. Aortic Valve * Aortic valve not well visualized. * No aortic stenosis. * No aortic regurgitation. Mitral Valve * Normal mitral valve structure. * No mitral stenosis. * Trace mitral regurgitation. Tricuspid Valve * Normal tricuspid valve structure. * No tricuspid stenosis. * Trace tricuspid regurgitation. * Estimated RA pressure is 3 mmHg. * Estimated RVSP is 30 mmHg. * No pulmonary hypertension. Pulmonic Valve * Pulmonic valve is not well visualized. * No pulmonic stenosis. * No pulmonic regurgitation. Aorta * Normally sized aortic root. Pericardium * The pericardium appears normal. IVC * The IVC is not dilated. * > 50% respiratory change Assessment and Plan (1) Bipolar 2 disorder, major depressive episode Current visit: No Status: Suspected Plan: Continue hospitalization, Close observation, Suicide Precautions per unit protocol, Encourage participation in unit milieu, Group Therapy, Monitor sleep, Monitor appetite Additional Plan: Continue current medications. Encourage group therapy. Therapists working on discharge planning. Risks, benefits, side effects, alternatives discussed w/pt: Yes Patient agreeable to treatment: Yes Consult Discharge Plan - Plan [facility] 12:00 pm (You have an appointment scheduled with Kavya Saab on Friday, February 08, 2019 at 12:00 PM for Counseling and Case Management. You have an appointment scheduled for January at 11:20 AM with Kathy Ramirez CNP for medication management. Please contact the office at least 24 hours in advance if you are unable to keep your appointment(s). ) Psychiatry Exam - Constitutional Vitals: Temp Pulse Resp BP Pulse Ox 98.3 F 94 16 110/58 97 01/29/19 08:33 01/29/19 08:33 01/29/19 08:33 01/29/19 08:33 01/29/19 08:33 General appearance: age & developmentally appropriate, obese - Musculoskeletal Gait: slow, unsteady Station: shaky Strength & Tone: mild weakness - Psychiatric Patient Orientation: Yes Person, Yes Time, Yes Place, Yes Circumstance Level of alertness: Alert Behavior: calm Psychomotor activity: Slowed Eye Contact: Maintains Eye Contact Mood Description: Depressed Patient description of mood: A little better Affect description: congruent with mood Speech Volume: Normal Speech pattern: normal rate, normal rhythm, normal tone, fluent, spontaneous Language & Vocabulary: consistent with education Thought Process: Linear, Goal Oriented Thought Content: No Suicidal ideation, No Homicidal ideation, No Overt delusions Perceptual Disturbances: No Auditory hallucinations, No Visual hallucinations Attention Span Ability: Capable of Focused Attention Memory Description: Grossly Intact Patient Reliability: Reliable Historian Fund of knowledge: Yes abstraction ability, Yes aware of current events Intelligence Estimate: Average Judgment: Fair Insight: Partial
[2019-01-29] MEDS: Liraglutide 1.2 MG SQ SCH (09:26)
[2019-01-29] MEDS: Acetaminophen 325 MG TABLET PO PRN (14:33)
[2019-01-29] MEDS: traZODone 50 MG TABLET PO SCH (21:08)
[2019-01-29] MEDS: Divalproex (12 HR) 500 MG TABLET PO SCH (21:11)
--- NOTE | 2019-01-30 08:26 | Event Note ---
Date of Encounter: 01/30/19 Time of Encounter: 08:20 PT currently has no chest pain. Serial trop was negative, EKG has no acute changes. A1c repeated at 7.1, Lipid panel is normal. No hx of smoking. ECHO resulted as follows: LVEF 65-70%. Mild left ventricular diastolic dysfunction. Normal right ventricular structure and function. Mildly dilated left atrium. No significant valvular dysfunction. No pulmonary hypertension. No WMA Chance of ACS is low. Stress test is not indicated in an urgent way. However, she would be benefit from a stress test as an outpatient. Please instruct pt to discuss stress test with her PCP upon discharge and arrange as appropriate.
[2019-01-30] MEDS: Azithromycin 250 MG TABLET PO SCH (08:36)
[2019-01-30] MEDS: Cholecalciferol (D-3) 1,000 UNIT (25MCG) TABLET PO SCH (08:36)
--- NOTE | 2019-01-30 08:47 | Discharge Summary ---
Date of Encounter: 01/30/19 Time of Encounter: 07:00 Diagnosis - Discharge Diagnosis (1) Bipolar 2 disorder, major depressive episode Status: Acute Medications - Discharge Medications Prescriptions: BuPROPion XL (24 HR) [Wellbutrin Xl] 150 mg PO DAILY #15 tab.er.24h Azithromycin [Zithromax] 250 mg PO Q24H #2 tablet Atorvastatin Calcium [Lipitor] 20 mg PO DAILY 09/06/17 [History] Carbidopa/Levodopa [Carbidopa-Levodopa 25-100 Tab] 1 tab PO TID 09/06/17 [History] Cholecalciferol (Vitamin D3) [Vitamin D3] 2,000 unit PO DAILY 09/06/17 [History] Gabapentin [Neurontin] 600 mg PO HS 09/06/17 [History] Insulin ASPART [Novolog Flexpen] 15 - 21 unit SQ TID 09/06/17 [History] traZODone [TraZODone] 100 mg PO HS 09/06/17 [History] Amantadine [Symmetrel] 100 mg PO BID 10/07/17 [History] Buspirone HCl [Buspar] 15 mg PO QID 02/07/18 [History] Docusate [Colace] 200 mg PO QAM 02/07/18 [History] Cetirizine HCl [Zyrtec] 10 mg PO DAILY #14 tablet 04/25/18 [Rx] Insulin DETEMIR [Levemir Flextouch] 75 unit SQ BID 05/25/18 [History] Liraglutide [Victoza 2-Rosales] 1.2 mg SQ DAILY 12/09/18 [History] Aspirin 81 mg PO DAILY 01/24/19 [History] Divalproex Sodium 1,000 mg PO HS 01/24/19 [History] Gabapentin [Neurontin] 300 mg PO BID 01/24/19 [History] Lisinopril 2.5 mg PO DAILY 01/24/19 [History] Oxybutynin [Ditropan] 5 mg PO BID 01/24/19 [History] Paroxetine [Paxil] 60 mg PO DAILY tablet 01/25/19 [Rx] Azithromycin [Zithromax] 250 mg PO Q24H #2 tablet 01/30/19 [Rx] BuPROPion XL (24 HR) [Wellbutrin Xl] 150 mg PO DAILY #15 tab.er.24h 01/30/19 [Rx] Fluconazole [Diflucan] 150 mg PO DAILY #1 tab 01/30/19 [Rx] Melatonin 3 mg PO HS #15 tablet 01/30/19 [Rx] Allergy/AdvReac Type Severity Reaction Status Date / Time levofloxacin [From Levaquin] Allergy Hives Verified 12/09/18 14:26 Penicillins Allergy Hives Verified 04/25/18 14:21 sulfamethoxazole Allergy Hives Verified 04/25/18 14:21 [From Sulfamethoprim] Tetanus Vaccines and Toxoid Allergy Rash Verified 04/25/18 14:21 [Tetanus Vaccines & Toxoid] trimethoprim Allergy Hives Verified 04/25/18 14:21 [From Sulfamethoprim] clindamycin AdvReac Hives Verified 04/25/18 14:21 ibuprofen AdvReac See Verified 04/25/18 14:21 Comments Results Procedures and tests throughout hospitalization: Completed Lab Orders Category Date Time Status Hgb A1C AM 0400 Lab 01/28/19 04:00 Completed Lipid Panel AM 0400 Lab 01/28/19 04:00 Completed Troponin I Q3H Lab 01/27/19 05:48 Completed Troponin I Q3H Lab 01/27/19 17:26 Completed Lab Results 01/25/19 01/25/19 01/26/19 Range/Units 18:02 20:59 08:56 POC Glucose 208 H 181 H 96 (70-99) mg/dL Est Mean Plasma Glucose mg/dl Hemoglobin A1c ( - 5.6) % Troponin I (< 0.04) ng/mL Triglycerides (< 150) mg/dL Cholesterol (< 200) mg/dL LDL Cholesterol, Calc (0-99) mg/dL VLDL Cholesterol, Calc (< 31) mg/dL HDL Cholesterol (40-59) mg/dL Cholesterol/HDL Ratio (0-4.9) 01/26/19 01/26/19 01/26/19 Range/Units 11:43 16:51 20:05 POC Glucose 149 H 100 H 85 (70-99) mg/dL Est Mean Plasma Glucose mg/dl Hemoglobin A1c ( - 5.6) % Troponin I (< 0.04) ng/mL Triglycerides (< 150) mg/dL Cholesterol (< 200) mg/dL LDL Cholesterol, Calc (0-99) mg/dL VLDL Cholesterol, Calc (< 31) mg/dL HDL Cholesterol (40-59) mg/dL Cholesterol/HDL Ratio (0-4.9) 01/27/19 01/27/19 01/27/19 Range/Units 07:47 10:53 16:35 POC Glucose 68 L 183 H 160 H (70-99) mg/dL Est Mean Plasma Glucose mg/dl Hemoglobin A1c ( - 5.6) % Troponin I (< 0.04) ng/mL Triglycerides (< 150) mg/dL Cholesterol (< 200) mg/dL LDL Cholesterol, Calc (0-99) mg/dL VLDL Cholesterol, Calc (< 31) mg/dL HDL Cholesterol (40-59) mg/dL Cholesterol/HDL Ratio (0-4.9) 01/27/19 01/27/19 01/28/19 Range/Units 17:26 20:09 04:00 POC Glucose 141 H (70-99) mg/dL Est Mean Plasma Glucose 157 mg/dl Hemoglobin A1c 7.1 H ( - 5.6) % Troponin I < 0.03 (< 0.04) ng/mL Triglycerides (< 150) mg/dL Cholesterol (< 200) mg/dL LDL Cholesterol, Calc (0-99) mg/dL VLDL Cholesterol, Calc (< 31) mg/dL HDL Cholesterol (40-59) mg/dL Cholesterol/HDL Ratio (0-4.9) 01/28/19 01/28/19 01/28/19 Range/Units 04:00 05:48 08:15 POC Glucose 82 (70-99) mg/dL Est Mean Plasma Glucose mg/dl Hemoglobin A1c ( - 5.6) % Troponin I < 0.03 (< 0.04) ng/mL Triglycerides 89 (< 150) mg/dL Cholesterol 132 (< 200) mg/dL LDL Cholesterol, Calc 46 (0-99) mg/dL VLDL Cholesterol, Calc 18 (< 31) mg/dL HDL Cholesterol 68 H (40-59) mg/dL Cholesterol/HDL Ratio 1.9 (0-4.9) 01/28/19 01/28/19 01/28/19 Range/Units 11:46 16:46 20:33 POC Glucose 153 H 121 H 130 H (70-99) mg/dL Est Mean Plasma Glucose mg/dl Hemoglobin A1c ( - 5.6) % Troponin I (< 0.04) ng/mL Triglycerides (< 150) mg/dL Cholesterol (< 200) mg/dL LDL Cholesterol, Calc (0-99) mg/dL VLDL Cholesterol, Calc (< 31) mg/dL HDL Cholesterol (40-59) mg/dL Cholesterol/HDL Ratio (0-4.9) 01/29/19 01/29/19 01/29/19 Range/Units 02:22 07:59 11:57 POC Glucose 144 H 120 H 118 H (70-99) mg/dL Est Mean Plasma Glucose mg/dl Hemoglobin A1c ( - 5.6) % Troponin I (< 0.04) ng/mL Triglycerides (< 150) mg/dL Cholesterol (< 200) mg/dL LDL Cholesterol, Calc (0-99) mg/dL VLDL Cholesterol, Calc (< 31) mg/dL HDL Cholesterol (40-59) mg/dL Cholesterol/HDL Ratio (0-4.9) 01/29/19 01/29/19 01/30/19 Range/Units 16:36 21:14 08:03 POC Glucose 145 H 173 H 57 L (70-99) mg/dL Est Mean Plasma Glucose mg/dl Hemoglobin A1c ( - 5.6) % Troponin I (< 0.04) ng/mL Triglycerides (< 150) mg/dL Cholesterol (< 200) mg/dL LDL Cholesterol, Calc (0-99) mg/dL VLDL Cholesterol, Calc (< 31) mg/dL HDL Cholesterol (40-59) mg/dL Cholesterol/HDL Ratio (0-4.9) Provider Date of admission: 01/25/19 11:37 Primary care physician: PCP NONE Consults: 01/27/19 11:45 Consult to Hospitalist [CONS] Routine Consulting Provider: Presley Rodriguez Reason for Consult: patient reports extreme sinus pain and headache causing her to be unable to function, started on Zithromax. Pt now c/o on and off chest pain but not in the last 48 hours Time Notified: 11:44 Call Completed: Yes Discharging clinician: Dilcia Martin Psychiatry Exam - Constitutional Vitals: Temp Pulse Resp BP Pulse Ox 98.9 F 95 20 129/75 97 01/29/19 20:06 01/29/19 20:06 01/29/19 20:06 01/29/19 20:06 01/29/19 20:06 General appearance: age & developmentally appropriate, well-groomed, well- nourished - Musculoskeletal Gait: normal Station: relaxed Strength & Tone: normal for patient - Psychiatric Patient Orientation: Yes Person, Yes Time, Yes Place Level of alertness: Alert Behavior: calm, cooperative Psychomotor activity: Normal Eye Contact: Maintains Eye Contact Mood Description: Euthymic/stable Patient description of mood: good Affect description: congruent with mood, full range Speech Volume: Normal Speech pattern: normal rate, normal rhythm, normal tone, fluent, spontaneous Language & Vocabulary: consistent with education Thought Process: Linear, Goal Oriented Thought Content: No Suicidal ideation, No Homicidal ideation, No Overt delusions Perceptual Disturbances: No Auditory hallucinations, No Visual hallucinations Attention Span Ability: Capable of Focused Attention Memory Description: Grossly Intact Patient Reliability: Reliable Historian Fund of knowledge: Yes abstraction ability, Yes aware of current events Intelligence Estimate: Average Judgment: Good Insight: Full Hospital Course Hospital course: Ms. Harding is a 63 year old female who was admitted for depression and a suicide attempt. Wellbutrin was added to her other medications of Prozac and BuSpar. She was seen by the hospitalist for sinus infection and some off-and-on chest pain. They recommended an outpatient cardiac stress test. She was started on azithromycin for the sinus infection.Patient was educated of diagnosis and the risk-benefit side effects of this alternative treatment options and was monitored for responsiveness and side effects. Mood anxiety sleep and appetite interest improved as did future orientation. Self-harm thoughts subsided, thinking cleared, psychosis resolved, and mood stabilized. Patient was able to attend both individual and group therapy sessions as well as meet with the psychiatrist daily and urged to discuss any medication or treatment issues or other concerns. The patient was educated primarily by verbal means about their diagnosis and manifestations in their life. The option for treatment including group and individual therapy programming was offered to the patient in addition to the use of medications with all their potential risks, benefits, and side effects as well as the risks of not taking medication and non-adhereance were discussed with the patient at length. The patient was given the opportunity to ask questions and was noted to participate in the treatment in the planning process. The patient felt ready and eager to be discharged from the inpatient psychiatric unit to continue on with treatment as an outpatient. The patient agreed that is they were safe for this disposition. The patient was considered to be able to participate in informed consent and decision making with respect to medical, legal, and financial issues of the time of discharge. At the time of discharge the patient adamantly denied any concerns for lethality including suicidal or homicidal thoughts ideations or plans and was future oriented toward ongoing mental health care, medical follow-up and sobriety. - Time Spent with Patient Total time spent providing and/or coordinating discharge services: Assessment and Plan - Patient/Caregiver Discharge Instructions Activity: resume usual activities as tolerated Diet: diabetic diet Additional Instructions: Continue current medications. Follow up with outpatient mental health. Encourage continued therapy in a group or individual setting. The patient was discharged to home. Call to schedule your cardiac stress test - Follow up [facility] [place] [place] 12:00 pm (You have an appointment scheduled with Kavya Saab on Friday, February 08, 2019 at 12:00 PM for Counseling and Case Management. You have an appointment scheduled for January at 11:20 AM with Kathy Ramirez CNP for medication management. Please contact the office at least 24 hours in advance if you are unable to keep your appointment(s). ) Functional capacity at discharge: uses cane/walker Overall status at discharge: Stable Disposition: Home, Self-Care Quality - Multiple Antipsychotics Patient discharged on 2 or more antipsychotic medications: No Procedures - Procedures Procedures: Medication Management, Crisis Stabilization, Supportive Therapy, Group Therapy, Psychoeducational Therapy
[2019-01-30] MEDS: Carbidopa/Levodopa 25/100 TABLET PO SCH (09:01)
[2019-01-30] MEDS: Aspirin 81 MG TAB.CHEW PO SCH (09:01)
[2019-01-30] MEDS: BuPROPion XL (24 HR) 150 MG TABLET PO SCH (09:01)
[2019-01-30] MEDS: Gabapentin 300 MG CAPSULE PO SCH (09:03)
[2019-01-30] MEDS: Loratadine 10 MG TABLET PO SCH (09:04)
[2019-01-30] MEDS: Insulin LISPRO 300 UNITS/3 ML VIAL SQ SCH ×2 (09:10→12:34)
[2019-01-30] MEDS: Insulin DETEMIR 100 UNIT/ML X5UNITS SQ SCH (09:18)
[2019-01-30] MEDS: Liraglutide 1.2 MG SQ SCH (09:21)
[2019-01-30 10:15] VITALS: BP 129/76
[2019-01-31] MEDS ORDERED: Fluconazole 100 MG TABLET PO ONE (08:45)
== END 2019-01-30 13:05 | disposition home or self-care (01) | DRG 885 ==
LOC: 1ANU 11:37 → SUATTDRO 11:37
PROVIDERS: ADMIT Psychiatry & Neurology Psychiatry; ATTEND Psychiatry & Neurology Psychiatry